=== PATIENT | male | born 1985 | race Caucasian/White ===

== ENCOUNTER 2019-06-18 20:16 | Emergency (ER) | payer SELFPAY ==
[~2019-06-18] VITALS: Ht 170.2 cm; Wt 81.4 kg
[~2019-06-18 20:16] MED LIST: ERYT1OIN6 RIGHT EYE; HYDR-3498 PO; IBUP-1542 PO; IBUP800T48 PO
[2019-06-18 20:31] VITALS: BP 129/72; PULSE 76; RESP 16; Ht 170.2 cm; Wt 81.4 kg
[2019-06-18] MEDS ORDERED: FLUORESCEIN STRIP RIGHT EYE ONE (22:00)
== END 2019-06-18 22:04 | disposition home or self-care (01) ==
LOC: FTE 20:16
DX: S05.01XA Injury of conjunctiva and corneal abrasion without foreign body, right eye, initial encounter (principal); X58.XXXA Exposure to other specified factors, initial encounter; Y92.9 Unspecified place or not applicable
CPT/HCPCS: 99283